=== PATIENT | female | born 1990 | race Two or more races ===

== ENCOUNTER 2019-01-11 01:02 | Emergency (ER) | payer OTHER ==
[~2019-01-11] VITALS: Ht 167.6 cm; Wt 69.9 kg
[2019-01-11 01:38] VITALS: BP 107/74
[2019-01-11] MEDS ORDERED: LORATADINE 10 MG TABLET ONE (02:22)
[2019-01-11] MEDS: LORATADINE 10 MG TABLET PO STA (02:28)
== END 2019-01-11 02:40 | disposition home or self-care (01) ==
LOC: ER 01:11
DX: H72.91 Unspecified perforation of tympanic membrane, right ear (principal)